=== PATIENT | female | born 2000 | race African-American/Black ===

== ENCOUNTER 2022-10-14 17:44 | Emergency (ER) | payer SELFPAY ==
[~2022-10-14 17:44] MED LIST: Iopamidol-370 76% 500 ML MDV (1 ML CHARGE) ONE
[2022-10-14 18:39] LABS: BHCG - Serum Negative (NEGATIVE); Pregs Control Background? CLEAR/WHITE (CLR/WHITE); Pregs Control Bar Appear? YES (CONTROL BAR)
[2022-10-14] MEDS ORDERED: predniSONE 20 MG TAB ONE (18:41)
== END 2022-10-14 20:27 | disposition home or self-care (01) ==
LOC: ERS 17:44
DX: M54.2 Cervicalgia (principal); J35.3 Hypertrophy of tonsils with hypertrophy of adenoids
CPT/HCPCS: 36415; 70491; 84703; 87081; 87430; J7512; Q9967

== ENCOUNTER 2022-10-30 17:32 | Emergency (ER) | payer SELFPAY | END 2022-10-30 19:28 | disposition home or self-care (01) | LOC: ERS 17:32 | DX: M25.511 Pain in right shoulder (principal) | CPT/HCPCS: 99283 ==